=== PATIENT | female | born 1955 | race Caucasian/White ===

== ENCOUNTER 2024-09-19 09:38 | Emergency (ER) | payer OTHER ==
[~2024-09-19] VITALS: Ht 180.3 cm; Wt 145.1 kg
[2024-09-19] MEDS ORDERED: ZESTRIL40 MG PO (09:54)
[2024-09-19] MEDS ORDERED: MONTELUKAST SOD10 MG PO (09:54)
[2024-09-19] MEDS ORDERED: DULOXETINE HCL60 MG PO (09:54)
[2024-09-19 09:56] LABS: BASOPHILS 0.7 % (0-2); EOSINOPHILS 1.8 % (0-6); HEMATOCRIT 38.8 % (35.0-50.0); HEMOGLOBIN 13.2 g/dL (12.0-18.0); LYMPHOCYTES 12.7 % (24-44); MCH 27.6 (27-36); MCHC 33.9 g/dl (30-36); MCV 81.5 fl (81-99); MONOCYTES 7.2 % (0-12); NEUTROPHILS 77.6 % (39-80); PLATELET COUNT 279 K/uL (140-440); RBC 4.76 M/ul (4.3-5.7); RDW 16.1 (10.5-15.0)
[2024-09-19] MEDS ORDERED: PRAZOSIN HCL5 MG PO (09:57)
[2024-09-19] MEDS ORDERED: CHLORTHALIDONE25 MG PO (09:58)
[2024-09-19] MEDS ORDERED: PULMICORT0.5 MG/2 M INH (09:58)
[2024-09-19] MEDS ORDERED: HYDROCHLOROTHIA25 MG PO (09:59)
[2024-09-19] MEDS ORDERED: DEXAMETHASONE SOD PHOS 10 MG/ML VIAL IV ONE (10:00)
[2024-09-19 10:06] LABS: ALBUMIN 3.4 g/dL (3.4-5.0); ALBUMIN/GLOBULIN RATIO 1.17 (1.1-2.4); ANION GAP 14.1 (7-21); BILIRUBIN, TOTAL 0.6 ng/dL (0.2-1.0); BUN/CREATININE RATIO 18.51 (6.0-28.6); CALCIUM 9.6 mg/dL (8.5-10.1); CREATININE, SERUM 1.62 mg/dL (0.55-1.02); POTASSIUM 4.1 mmol/L (3.5-5.1); PROTEIN, TOTAL 6.3 g/dL (6.4-8.2)
[2024-09-19] MEDS ORDERED: SODIUM CHLORIDE 0.9% 1,000 ML IV PRN (10:15)
[2024-09-19] MEDS ORDERED: hydrOXYzine pamoate 50 MG CAP PO ONE (11:15)
[2024-09-19] MEDS ORDERED: VANCOCIN HCL125 MG PO (12:36)
[2024-09-19] MEDS ORDERED: PREDNISONE20 MG PO (12:36)
[2024-09-19 12:45] VITALS: BP 119/69
== END 2024-09-19 12:45 | disposition home or self-care (01) ==
LOC: ED 09:38
PROVIDERS: Internal Medicine
DX: T78.3XXA Angioneurotic edema, initial encounter (principal); R19.7 Diarrhea, unspecified; I12.9 Hypertensive chronic kidney disease with stage 1 through stage 4 chronic kidney disease, or unspecified chronic kidney disease; N18.9 Chronic kidney disease, unspecified; E66.01 Morbid (severe) obesity due to excess calories; G47.33 Obstructive sleep apnea (adult) (pediatric); Z88.2 Allergy status to sulfonamides; Z88.8 Allergy status to other drugs, medicaments and biological substances; Z79.899 Other long term (current) drug therapy
CPT/HCPCS: 36415; 80053; 83690; 85025; 87324; 96361; 96374; 99284-25; J1100; J7030